=== PATIENT | female | born 1940 | race Caucasian/White ===

== ENCOUNTER 2017-09-07 09:25 | Emergency (ER) | payer MEDICARE ==
--- NOTE | 2017-09-07 10:10 | RAD ---
TWO VIEWS CHEST: Date: 09-07-17 Comparison: None. History: Body aches. Coughing. Sneezing. FINDINGS: There is mild increased linear interstitial density with pulmonary hyperinflation bilaterally. There is atherosclerotic calcification in the aortic arch. There is no pneumothorax or pleural fluid and no focal consolidation or alveolar edema. There is degenerative change of the thoracic spine. IMPRESSION: No acute findings. Hyperinflation may signify a degree of COPD in the proper clinical setting. POS: MARIA D
== END 2017-09-07 10:38 | disposition home or self-care (01) ==
LOC: SCSER 09:25
DX: J40 Bronchitis, not specified as acute or chronic (principal); E78.5 Hyperlipidemia, unspecified; I10 Essential (primary) hypertension; F32.9 Major depressive disorder, single episode, unspecified; Z79.82 Long term (current) use of aspirin; Z79.899 Other long term (current) drug therapy
CPT/HCPCS: 71046

== ENCOUNTER 2017-09-15 08:07 | Outpatient (CLI) | payer MEDICARE | END 2017-09-15 08:08 | disposition home or self-care (01) | LOC: BICBD 08:07 | PROVIDERS: ATTEND Internal Medicine | DX: Z12.31 Encounter for screening mammogram for malignant neoplasm of breast (principal); Z13.820 Encounter for screening for osteoporosis | CPT/HCPCS: 77063; 77067; 77080 ==

== ENCOUNTER 2018-06-14 05:53 | Day surgery (SDC) | payer MEDICARE ==
[2018-06-13 14:13] VITALS: BMI 32.3
[~2018-06-14 05:53] MED LIST: Cyclopentolate 1% Opth Drop 2 ML BOT FS SCH; Fluorouracil 100 MG, Enoxaparin Sodium 25 MG, EPINEPHrine 0.3 MG in Ophthalmic Irrigati... FS SCH; Phenylephrine 2.5% Ophth Soln 5 ML BOT FS SCH
[2018-06-14] MEDS ORDERED: Phenylephrine 2.5% Ophth Soln 5 ML BOT ONE (06:21)
[2018-06-14] MEDS ORDERED: Cyclopentolate 1% Opth Drop 2 ML BOT ONE (06:21)
[2018-06-14] MEDS ORDERED: Midazolam HCl 2 mg/2 ml Vial ONE (06:49)
[2018-06-14] MEDS ORDERED: Fentanyl 100 MCG/2 ML VIAL ONE (06:49)
[2018-06-14] MEDS ORDERED: PROPOFOL 20 ML ONE (06:49)
--- NOTE | 2018-06-14 11:02 | OP ---
DATE OF PROCEDURE: 06/14/2018 PREOPERATIVE DIAGNOSIS: Macular hole, right eye. POSTOPERATIVE DIAGNOSIS: Macular hole, right eye. PROCEDURE: Pars planavitrectomy, internal limiting membrane peel, right eye. ANESTHESIA: Local with monitored anesthesia care. COMPLICATIONS: None. PROCEDURE IN DETAIL: The patient was identified in the preoperative holding area. Appropriate [facility] consent for the planned surgical procedure on the right eye had been obtained. The patient was t ransported to the operative suite where cardiopulmonary monitoring was established. Local anesthesia obtained using retrobulbar and modified Van Lint lid block using 50 to give mixture of 4% lidocaine, 0.75% bupivacaine. The patient was prepped and draped in usual sterile manner for ophthalmic surger y on the right eye. Lid speculum was placed in the right eye. The 25-guage trocars placed in conjun ctiva and sclera supratemporally, inferotemporally, and supranasally. Infusion line was placed infer otemporally. Light pipe a vitreous cutter were inserted into the eye. Core vitrectomy was performed . Posterior hyaloid face was elevated and peeled into the periphery using wide field viewing system. Indocyanine green dye was infused onto the posterior pole x1, identifying the internal limiting mem brane. This was elevated using membrane scraper and peeled across the macula using end-gripping forc eps. No holes or tears were identified in the periphery. Complete air fluid exchange was performed with 10 minutes being allowed for fluid to drain posteriorly. A 28% sulfur excise gas was infused in to the eye. Trocars were removed. Eye was noted to retain pressure well reflect loss of life. Atro pine and antibiotic ointment and patched and shielded presyncopal symptoms in good condition having s uffered no immediate perioperative period. DISCHARGE INSTRUCTIONS: The patient was instructed to keep patch and shield on, avoid lifting or mauricio ding, and follow up in the morning with Dr. Pelayo.
[2018-06-14] MEDS ORDERED: CEFAZOLIN 1 GM VIAL ONE (15:42)
[2018-06-14] MEDS ORDERED: Lidocaine 4% PF 5 ML AMP ONE (15:42)
[2018-06-14] MEDS ORDERED: Bupivacaine 0.75% 10 ML AMP ONE (15:42)
[2018-06-14] MEDS ORDERED: Triamcinolone 40 MG/ML VIAL ONE (15:42)
[2018-06-14] MEDS ORDERED: Indocyanine Green 25 MG/10 ML VIAL ONE (15:42)
[2018-06-14] MEDS ORDERED: Maxitrol 0.1% Opth Oint 3.5 GM TUBE ONE (15:42)
[2018-06-14] MEDS ORDERED: PHENYLEPHRINE-NS 100 MCG/ML 10 ML SYRINGE ONE (15:42)
[2018-06-14] MEDS ORDERED: Lidocaine 1% PF 5 ML VIAL ONE (15:42)
[2018-06-14] MEDS ORDERED: PROPOFOL 200 MG/20 ML VIAL ONE (15:42)
== END 2018-06-14 08:53 | disposition home or self-care (01) ==
LOC: SDC 05:53
PROVIDERS: ATTEND Ophthalmology Retina Specialist
PROC: 08T43ZZ Resection of Right Vitreous, Percutaneous Approach (ICD-10-PCS; principal; 2018-06-14)
PROC: 08NE3ZZ Release Right Retina, Percutaneous Approach (ICD-10-PCS; 2018-06-14)
DX: H35.341 Macular cyst, hole, or pseudohole, right eye (principal); Z88.5 Allergy status to narcotic agent
CPT/HCPCS: 67025; J0171; J0690; J1650; J2001; J2250; J2704; J3010; J3301; J3490; J9190

== ENCOUNTER 2018-10-25 05:46 | Day surgery (SDC) | payer MEDICARE ==
[2018-10-24 12:18] VITALS: BMI 32.3
[~2018-10-25 05:46] MED LIST changes: -Cyclopentolate 1% Opth Drop 2 ML BOT FS SCH; -Fluorouracil 100 MG, Enoxaparin Sodium 25 MG, EPINEPHrine 0.3 MG in Ophthalmic Irrigati... FS SCH; +Fluorouracil 100 MG, Enoxaparin Sodium 25 MG, EPINEPHrine 0.3 MG, Dextrose 50% 3 ML in ... IVPB SCH; -Phenylephrine 2.5% Ophth Soln 5 ML BOT FS SCH
[2018-10-25] MEDS ORDERED: Cyclopentolate 1% Opth Drop 2 ML BOT ONE (06:08)
[2018-10-25] MEDS ORDERED: Phenylephrine 2.5% Ophth Soln 5 ML BOT ONE (06:08)
[2018-10-25] MEDS ORDERED: Midazolam HCl 2 mg/2 ml Vial ONE (06:46)
[2018-10-25] MEDS ORDERED: PROPOFOL 20 ML ONE (06:46)
[2018-10-25] MEDS ORDERED: Fentanyl 100 MCG/2 ML VIAL ONE (06:46)
--- NOTE | 2018-10-25 10:01 | OP ---
DATE OF PROCEDURE: 10/25/2018 PREOPERATIVE DIAGNOSIS: Vitreomacular traction, left eye. POSTOPERATIVE DIAGNOSIS: vitreomacular traction, left eye. PROCEDURES PERFORMED: Pars plana vitrectomy and epiretinal membrane peel, left eye. ANESTHESIA: Local with monitored anesthesia care. DESCRIPTION OF PROCEDURE: The patient was identified in the preoperative holding area. Appropriate informed consent for the planned surgical procedure on the left eye had been obtained. The patient was transported to the operative suite, where appropriate cardiopulmonary monitoring was established. Local anesthesia was obtained using retrobulbar modified Van Lint lid block using 50:50 mixture of 4% lidocaine and 0.75% bupivacaine. The patient was prepped and draped in the usual sterile manner for ophthalmic surgery on the left eye. Lid speculum was placed in the left eye. A 25-gauge trocar was placed through the conjunctiva and sclera superotemporally, inferotemporally, and supranasally. Infusion line was placed inferotemporally. Light pipe vitreous cutter was inserted into the eye. Core vitrectomy was performed. Posterior hyaloid face was dissected and peeled across the macula using vacuum suction. Traction from the foveal area was relieved. Indirect ophthalmoscopy was used to exam the retina 360 degrees. No holes, breaks, or tears were identified. 28% sulfur hexafluoride gas was infused into the eye. Trocars were removed. The eye was noted to retain pressure well. Retrobulbar Kenalog and subconjunctival Ancef were placed. Atropine antibiotic ointment was placed and the eye was patched and shielded. The patient was taken to the postoperative recovery unit in good condition, having suffered no immediate perioperative complications. The patient was advised to avoid flat and back positioning, keep the patch and shield on, and follow up in the morning with Dr. Pelayo. Job ID: [id number]
[2018-10-25] MEDS ORDERED: PROPOFOL 200 MG/20 ML VIAL ONE (16:05)
[2018-10-25] MEDS ORDERED: Maxitrol 0.1% Opth Oint 3.5 GM TUBE ONE (16:05)
[2018-10-25] MEDS ORDERED: Bupivacaine 0.75% 10 ML AMP ONE (16:05)
[2018-10-25] MEDS ORDERED: Lidocaine 4% PF 5 ML AMP ONE (16:05)
[2018-10-25] MEDS ORDERED: CEFAZOLIN 1 GM VIAL ONE (16:05)
[2018-10-25] MEDS ORDERED: Lidocaine 1% PF 5 ML VIAL ONE (16:05)
[2018-10-25] MEDS ORDERED: Triamcinolone 40 MG/ML VIAL ONE (16:05)
== END 2018-10-25 08:45 | disposition home or self-care (01) ==
LOC: SDC 05:46
PROVIDERS: ATTEND Ophthalmology Retina Specialist
PROC: 08T53ZZ Resection of Left Vitreous, Percutaneous Approach (ICD-10-PCS; principal; 2018-10-25)
PROC: 08NF3ZZ Release Left Retina, Percutaneous Approach (ICD-10-PCS; 2018-10-25)
DX: H43.822 Vitreomacular adhesion, left eye (principal); Z79.82 Long term (current) use of aspirin; Z79.899 Other long term (current) drug therapy; Z88.5 Allergy status to narcotic agent; Z88.8 Allergy status to other drugs, medicaments and biological substances
CPT/HCPCS: 67025; J0171; J0690; J1650; J2001; J2250; J2704; J3010; J3301; J3490; J9190